=== PATIENT | female | born 1935 | race Hispanic/Latino ===

== ENCOUNTER 2017-02-18 20:52 | Emergency (ER) | payer MEDICARE ==
--- NOTE | 2017-02-18 22:15 | Emergency Department Report ---
HPI - General Chief Complaint: Psych Time Seen by Provider: 02/18/17 21:45 - HPI HPI: This is an 81-year-old female presents to the emergency department from her personal halfway via EMS and was sent in because the personal halfway appears to have concern that there was some type of behavior change. Per EMS, the facility was concerned as she has been slightly aggressive and does not want to take her medication because she believes that they are giving her the wrong medication or wrong amount. The patient herself also says that she believes she is getting the wrong medication or wrong amount of medication and says that there is someone who takes care of all the people at the personal halfway but that she appears overworked and sometimes will "mixed things up." The patient herself denies any current complaints. ED Past Medical Hx - Social History Smoking Status: Never Smoker Substance Use Type: None - Medications Home Medications: Home Medications Medication Instructions Recorded Confirmed Last Taken Type Docusate Sodium [Dok] 200 mg PO BID 02/19/17 02/19/17 Unknown History Donepezil HCl [Donepezil HCl Odt] 10 mg PO QHS 02/19/17 02/19/17 Unknown History Levothyroxine [Synthroid] 100 mcg PO QAM 02/19/17 02/19/17 Unknown History Memantine HCl 10 mg PO QDAY 02/19/17 02/19/17 Unknown History Metoprolol Tartrate 25 mg PO QDAY 02/19/17 02/19/17 Unknown History OXcarbazepine [Trileptal] 300 mg PO BID 02/19/17 02/19/17 Unknown History Oxybutynin [Ditropan] 5 mg PO QHS 02/19/17 02/19/17 Unknown History Pantoprazole [Protonix] 40 mg PO QDAY 02/19/17 02/19/17 Unknown History Quetiapine Fumarate [Seroquel] 100 mg PO QAM 02/19/17 02/19/17 Unknown History ED Review of Systems ROS: Stated complaint: CONFUSION/DEMENTIA Other details as noted in HPI Comment: All other systems reviewed and negative Constitutional: denies: chills, fever Eyes: denies: eye pain, eye discharge, vision change ENT: denies: ear pain, throat pain Respiratory: denies: cough, shortness of breath, wheezing Cardiovascular: denies: chest pain, palpitations Gastrointestinal: denies: abdominal pain, nausea, diarrhea Genitourinary: denies: urgency, dysuria, discharge Musculoskeletal: denies: back pain, joint swelling, arthralgia Skin: denies: rash, lesions Neurological: denies: headache, weakness, paresthesias Physical Exam - Physical Exam Vital Signs: Vital Signs 02/18/17 22:01 Temperature 98 F Pulse Rate 78 Respiratory 20 Rate Blood Pressure 146/60 [Left] O2 Sat by Pulse 95 Oximetry Physical Exam: GENERAL: The patient is well-developed well-nourished. HENT: Normocephalic. Atraumatic. Patient has moist mucous membranes. EYES: Extraocular motions are intact. Pupils equal reactive to light bilaterally. NECK: Supple. Trachea is midline. CHEST/LUNGS: Clear to auscultation. There is no respiratory distress noted. HEART/CARDIOVASCULAR: Regular. There is no tachycardia. There is no gallop rub or murmur. ABDOMEN: Abdomen is soft, nontender. Patient has normal bowel sounds. There is no abdominal distention. SKIN: Skin is warm and dry. NEURO: The patient is awake, alert, and oriented. The patient is cooperative. The patient has no focal neurologic deficits. The patient has normal speech and gait. Cranial nerves II-12 grossly intact. MUSCULOSKELETAL: There is no tenderness or deformity. There is no limitation range of motion. There is no evidence of acute injury. ED Course Vital Signs 02/18/17 22:01 Temperature 98 F Pulse Rate 78 Respiratory 20 Rate Blood Pressure 146/60 [Left] O2 Sat by Pulse 95 Oximetry - Reevaluation(s) Reevaluation #1: The patient says that she does believe that she has a history of some renal insufficiency secondary to some long-term lithium is that she used to be on for her bipolar disorder. She has not been on this medication for a while now as it was apparently stopped during a previous psychiatric inpatient admission. 02/19/17 01:59 - Consultations Consultation #1: I spoke to the patient's [id number], Jakob, at [phone]. She says that the patient has a diagnosis of bipolar disorder with psychotic tendencies. She says that the patient is now at her second personal halfway as she was kicked out of the first one secondary to some psychotic episodes. She says that she was called by the personal halfway line haul owner operator, Sheridan, this evening and was told that they need to come and pick her up because she is refusing her medications and she is becoming agitated and/or combative. However he did not want to take care of her and encouraged or agreed with the plan for EMS to be called, which [facility]. Apparently the patient had some episodes in the past where she did require an 18 day admission to a psychiatric facility, [facility], in [place]. I believe the family was hoping to get her to a facility in [place]. However when they picked her up from [facility] after his admission Jakob says that she was more psychotic than ever. Jakob, the of the patient's son, says that they are the patient's medical power of estate planning attorney but they are no longer the financial power of estate planning attorney and says that they are not responsible for her but are unable to tell me who would be responsible for her or if she is her own decision maker. Jakob says that a previous oncology social work at [facility], or somewhere, got the financial power of estate planning attorney revoked from them. Jakob says they are not willing to come and get her and take care of her and are asking for her to be sent to a psychiatric facility. Our crisis/behavioral counselor has been contacted to assess this patient. A consult will be made for case management as well, in case the patient does not require inpatient psychiatric admission, as she will need a safe disposition. 02/19/17 01:46 02/19/17 02:02 Supposedly the phone number to Sheridan, the line haul owner operator of the personal halfway at [address] [place] [address] is [phone] ED Medical Decision Making - Lab Data Result diagrams: 02/18/17 22:07 02/20/17 20:21 - Medical Decision Making I saw this patient 2 days ago and case management and behavioral services are on the case. The family member who has medical power of estate planning attorney does not appear to want to take care of her as she has some bouts of psychosis and believe she needs to be stabilized on lithium, which he has been off for 6 months. Does not appear that she is welcome back at the personal halfway that she came from prior to the emergency department. This patient was signed out to my colleagues and she has been monitored in the ED stay. She continues to be in the emergency department and we will continue to monitor her as she gets evaluations from case management and psych for safe disposition. As per the consultation section where I wrote a much longer note, the patient has not had any acute psychosis here that would require her to be inpatient psychiatric and has been AAO 3 but there is no where for her to go at this time. Critical Care Time: No Critical care attestation.: If time is entered above; I have spent that time in minutes in the direct care of this critically ill patient, excluding procedure time. ED Disposition Clinical Impression: History of bipolar disorder, Discharge planning issues, Renal insufficiency Disposition: [id number] ANOTHER TYPE HLTHCARE Is pt being admited?: No Condition: Stable Referrals: PRIMARY CARE, [Primary Care Provider] - 3-5 Days
[2017-02-18 22:29] LABS: Basophils % (Auto) 0.7 % (0.0-1.8); Eosinophils % (Auto) 3.3 % (0.0-4.3); Hemoglobin 11.4 gm/dl (10.1-14.3); Mean Corpuscular HGB Conc 33 % (30-34); Mean Corpuscular Hemoglobin 28 pg (28-32); Mean Corpuscular Volume 87 fl (79-97); Platelet Count 329 K/mm3 (140-440); Red Blood Count 4.05 M/mm3 (3.65-5.03); Red Cell Distribution Width 16.2 % (13.2-15.2); White Blood Count 8.6 K/mm3 (4.5-11.0)
[2017-02-18 22:45] LABS: BUN/Creatinine Ratio 17.69; Chloride 102.8 mmol/L (98-107); Potassium 4.7 mmol/L (3.6-5.0)
[2017-02-19] MEDS ORDERED: TYLENOL ONE (05:57)
[2017-02-19] MEDS ORDERED: TYLENOL PO ONE (05:58)
[2017-02-19 14:25] LABS: Urine Drugs of Abuse Note Disclamer
[2017-02-19 14:40] LABS: Bacteria,Urine 1+ /HPF (Negative); Bilirubin,Urine NEG (Negative); Blood,Urine NEG (Negative); Ketones,Urine NEG (Negative); Leukocyte Esterase,Urine SM (Negative); Nitrite,Urine NEG (Negative); Protein,Urine <15 mg/dL mg/dL (Negative); Urobilinogen,Urine < 2.0 mg/dL (<2.0)
[2017-02-19] MEDS ORDERED: ATIVAN PO ONE (20:56)
[2017-02-20] MEDS ORDERED: ATIVAN ONE (03:24)
[2017-02-20] MEDS ORDERED: ATIVAN IM PRN (17:57)
[2017-02-20] MEDS ORDERED: METOPROLOL TARTRATE 25 MG PO SCH (18:00)
[2017-02-20] MEDS ORDERED: ATIVAN PO PRN (18:29)
[2017-02-20] MEDS: NAMENDA PO SCH (18:49)
[2017-02-20] MEDS: LOPRESSOR PO SCH (18:49)
[2017-02-20] MEDS: PROTONIX PO SCH (18:49)
[2017-02-20 20:51] LABS: BUN/Creatinine Ratio 17.69; Calcium 10.4 mg/dL (8.4-10.2); Chloride 101.1 mmol/L (98-107); Potassium 4.4 mmol/L (3.6-5.0)
[2017-02-20] MEDS ORDERED: ARICEPT PO SCH (22:00)
[2017-02-20] MEDS ORDERED: DITROPAN PO SCH (22:00)
[2017-02-20] MEDS ORDERED: NON-FORMULARY (Donepezil Hcl [Donepezil Hcl Odt] 10 MG) PO SCH (22:00)
[2017-02-20] MEDS: COLACE PO SCH (22:05)
[2017-02-20] MEDS: TRILEPTAL PO SCH (22:06)
--- NOTE | 2017-02-21 03:40 | Cat Scan Report ---
FINAL REPORT PROCEDURE: CT HEAD/BRAIN WO CON TECHNIQUE: Computerized tomography of the head was performed without contrast material. HISTORY: fall COMPARISON: No prior studies are available for comparison. FINDINGS: Skull and scalp: Normal. Paranasal sinuses: Normal. Ventricles and subarachnoid spaces: There is moderate central and cortical atrophy appropriate for the patient's age. There is no hydrocephalus.. Cerebrum: No evidence of hemorrhage, acute infarction or mass . Cerebellum and brainstem: No evidence of hemorrhage, acute infarction or mass. Vasculature: Normal. Comments: None. IMPRESSION: There is no skull fracture or intracranial hemorrhage.
--- NOTE | 2017-02-21 03:57 | Cat Scan Report ---
FINAL REPORT PROCEDURE: CT CERVICAL SPINE WO CON TECHNIQUE: Computerized tomography of the cervical spine was performed from the skull base to T1 without contrast material. HISTORY: fall COMPARISON: No prior studies are available for comparison. FINDINGS: The skull base and the foramen magnum are intact. The cervical vertebrae are intact. There are no fractures or malalignments. There is degenerative loss of disc height with osteophytic ridging at C5-C6 causing bilateral foraminal stenosis. There is no facet dislocation. Prevertebral soft tissues are normal in thickness. IMPRESSION: There are no acute traumatic injuries..
[2017-02-21] MEDS ORDERED: SYNTHROID PO SCH (06:00)
[2017-02-21] MEDS: TRILEPTAL PO SCH (10:35)
[2017-02-21] MEDS: PROTONIX PO SCH (10:38)
[2017-02-21] MEDS: NAMENDA PO SCH (10:40)
[2017-02-21] MEDS: LOPRESSOR PO SCH (10:43)
[2017-02-21] MEDS: COLACE PO SCH (10:45)
--- NOTE | 2017-02-21 15:19 | Event Note ---
Date: 02/21/17 81-year-old female whose been in the emergency department for approximately 65 hours now. Patient is currently calm competent and aware of her surroundings. She is alert and oriented 3. She is clearly N to make her medical decisions at this point. She states that she would prefer to go back to her detention currently. Although there are "some problems there that appears to be the best option for me. When can I get back to [facility]?" At this point I'm comfortable discharging the patient given that I believe she has capacity to make her own medical decisions. Portions of this chart were dictated with dictation software. There may be dictation errors contained within this note.
[2017-02-21 15:59] VITALS: BP 134/59
== END 2017-02-21 16:29 | disposition home or self-care (01) ==
LOC: ED 20:52 → EEVIPCON 20:52 → ED 02-21 16:29
DX: F29 Unspecified psychosis not due to a substance or known physiological condition (principal); N28.9 Disorder of kidney and ureter, unspecified
CPT/HCPCS: 36415; 70450; 72125; 80048; 80307; 81001; 84443; 85025